=== PATIENT | female | born 1970 | race Caucasian/White ===

== ENCOUNTER 2025-07-13 09:25 | Emergency (ER) | payer OTHER, SELFPAY ==
[2025-07-13 10:15] LABS: Bacteria/HPF None Seen HPF (None Seen); CAUTI Indications for Culture Pelvic or flank pain; Glucose, Urine (Dipstick) Normal (Negative); Leukocyte Negative Leu/uL (Negative); Protein, Urine (Dipstick) Negative (Neg-Trace); RBC/HPF 0-3 HPF (0-3); Specific Gravity, Urine 1.026 (1.002-1.036); WBC/HPF 0-3 HPF (0-3)
[2025-07-13 10:16] LABS: Urine Culture Reflex No No
[2025-07-13] MEDS ORDERED: Ketorolac Tromethamine 30 MG (1 mL) VIAL ONE (10:31)
== END 2025-07-13 11:08 | disposition home or self-care (01) ==
LOC: ERS 09:25
DX: G89.29 Other chronic pain (principal); M54.50 Low back pain, unspecified; I10 Essential (primary) hypertension; Z87.891 Personal history of nicotine dependence
CPT/HCPCS: 81001; 96372; 99283; J1885